=== PATIENT | female | born 1985 | race Two or more races ===

== ENCOUNTER 2025-09-16 18:04 | Emergency (ER) | payer BC, MEDICAID ==
[~2025-09-16] VITALS: Ht 154.9 cm; Wt 77.2 kg
[2025-09-16 19:13] VITALS: BP 133/81; PULSE 63; RESP 15; TEMP 97.8; O2SAT 97
--- NOTE | 2025-09-16 19:22 | ED.PDOC ---
HPI Comments HERE FOR AN INCH LAC TO RIGHT EYEBROW S/P TREE FELL ON HER DENIES LOC BLEEDING CONTROLLED. DENIES LOC, NECK PAIN, NUMBNESS OR WEAKNESS. Chief Complaint: Laceration Time Seen by MD: 18:17 Reviewed Notes: Nurses Notes, Medications, Allergies Allergies: Coded Allergies: NO KNOWN ALLERGIES (Unverified , 09/16/25) Information Source: Patient Mode of Arrival: Ambulatory Complexity: Simple Laceration Length (cm): 2 Skin Type: Linear Depth of Injury: Skin Tendon Injury: 0% Past Medical History PAST MEDICAL HISTORY: Denies Surgical History: Denies all surgeries PRODUCTION EXPEDITER History: No Pertinent PRODUCTION EXPEDITER History Family History Family History: Unknown Social History Smoker: Non-Smoker Alcohol: Denies ETOH Use Drugs: Denies Drug Use All Other Systems: Reviewed and Negative (SEE HPI) Physical Exam General Appearance: No Apparent Distress, Normal HEENT: Pharynx Normal Neck: Full Range of Motion, Non-Tender Respiratory: Lungs Clear, No Respiratory Distress, Normal Breath Sounds Cardiovascular: No Murmur, Normal Peripheral Pulses, Regular Rate/Rhythm Breast Exam: Deferred Gastrointestinal: Non Tender, Soft Genitalia: Deferred Pelvic: Deferred Rectal: Deferred Extremities: Normal range of motion Musculoskeletal : Apperance: Normal Neurologic: Alert, No Motor Deficits, Normal Affect, Normal Mood, No Sensory Deficits Cerebellar Function: Normal Reflexes: NOT DONE Skin: Dry, Lacerations (SUPERFICIAL LACERATION RIGHT UPPER EYELID BLEEDING CON TROLLED NO OBVIOUS FOREIGN BODY NO INJURY OR FOREIGN BODY TO RIGHT EYE SUPERFICIAL SCRATCHES UNDER I), Normal Color, Warm Lymphatic: No Adenopathy Was a procedure done? Was a procedure done?: Yes Sedation Sedation?: No Informed consent obtained: Yes Laceration Repair : Location RIGHT UPPER EYELID Length 2 CM Anesthetic: Nothing Laceration Repair Prep: Saline, by Irrigation, Manual Scrub Laceration Repair Wound Comple: epidermis/dermis repair Laceration Repair: Dermabond Informed consent obtained: Yes Risks, benefits, and alternati: Yes Notes PATIENT TOLERATED WELL MINIMAL BLOOD LOSS GOOD APPROXIMATION WITH DERMABOND Differential diagnosis Generic Laceration: Hematoma, Fracture, Retained Foriegn Body, Neurovascular Injury, Tendon Injury, Abrasion/Contusion, Laceration, Avulsion X-Ray, Labs, Meds, VS Vital Signs Date Time Temp Pulse Resp B/P (MAP) Pulse Ox O2 Delivery O2 Flow Rate FiO2 09/16/25 19:13 97.8 63 15 133/81 (98) 97 97.8 09/16/25 19:13 63 15 97 Room Air 09/16/25 18:05 97.8 63 15 133/81 97 97.8 X-Ray, Labs, Meds, VS Comment SEE PROCEDURE NOTE. Advised [id number] Tylenol or Motrin as needed for the pain per labeled dosing instructions. Advised to follow up urgent care primary care or back in the ER for removal. Advised to monitor for signs and symptoms of infection and uncontrolled bleeding return to the ER as indicated. Pt indicate understanding and agree with discharge plan of care. Time of 1ST Reevaluation: 18:17 Reevaluation 1ST: Unchanged Time of 2ND Reevaluation: 19:22 Reevaluation 2ND: Improved Patient Education/Counseling: Diagnosis, Treatment, Need For Follow Up Family Education/Counseling: No Family Present Departure 1 Departure Time of Disposition: 19:22 Impression: Primary Impression: Laceration of eyebrow Qualified Codes: S01.111A - Laceration without foreign body of right eyelid and periocular area, initial encounter Disposition: HOME / SELF CARE / HOMELESS Condition: Stable Discharged With: Relative (Sibling) Critical Care Note Critical Care Time?: No Stability Stability form required: BHAVYA Meraz Sep 16, 2025 19:22
== END 2025-09-16 19:36 | disposition home or self-care (01) ==
LOC: ER 18:09
DX: S01.111A Laceration without foreign body of right eyelid and periocular area, initial encounter (principal); W18.39XA Other fall on same level, initial encounter; Y93.89 Activity, other specified; Y92.89 Other specified places as the place of occurrence of the external cause; Y99.8 Other external cause status
CPT/HCPCS: 12011; 99282; A4649